=== PATIENT | female | born 1970 | race Caucasian/White ===

== ENCOUNTER 2020-12-19 13:38 | Inpatient (IN) | payer SELFPAY ==
[2020-12-19] MEDS ORDERED: ONDANSETRON 4 MG/2 ML VIAL ONE (14:34)
[2020-12-19] MEDS ORDERED: KETOROLAC 30 MG/ML INJ ONE (14:35)
[2020-12-19] MEDS ORDERED: NA CHLORIDE 0.9% 1,000 ML ONE (14:35)
[2020-12-19 14:49] LABS: Absolute Lymphocytes (CBC) 2.1 K/uL (0.7-4.9); Basophils % 0.4 % (0-1.3); Hematocrit 39.6 % (36.0-45.0); Lymphocytes % 25.7 % (15.3-44.8); MPV 7.8 fL (7.6-11.3); RBC Red Blood Cell Count 4.29 M/uL (3.86-4.86)
--- NOTE | 2020-12-19 14:51 | RAD REPORT ---
EXAM DESCRIPTION: US - Abdomen Exam Limited - 12/19/2020 2:42 pm CLINICAL HISTORY: RUQ abdomen pain COMPARISON: No comparisons FINDINGS: The gallbladder demonstrates no gallstones. Minimal pericholecystic fluid is suspected. Th e common bile duct is normal measuring 4 mm. The liver demonstrates no findings of intrahepatic biliary dilatation. IMPRESSION: The gallbladder is distended with a small amount of pericholecystic fluid evident. No g allstones are evident. If pain persists, consider HIDA scan correlation.
[2020-12-19 14:53] LABS: ALT/SGPT 24 U/L (12-78); AST/SGOT 10 U/L (15-37); Albumin 3.8 g/dL (3.4-5.0); Alkaline Phosphatase 73 U/L (45-117); BUN Blood Urea Nitrogen 16 mg/dL (7-18); Bicarbonate 29 mmol/L (21-32); Bilirubin Direct < 0.1 mg/dL (0-0.2); Bilirubin Total 0.3 mg/dL (0.2-1.0); Glucose Level 112 mg/dL (74-106); Lipase 210 U/L (73-393); Potassium 3.7 mmol/L (3.5-5.1); Protein, Total 7.4 g/dL (6.4-8.2); Sodium Level 143 mmol/L (136-145)
--- NOTE | 2020-12-19 15:31 | ER ---
Nurse's Notes [facility] Name: Radha Grubbs Age: 50 yrs Sex: Female : 1970 Arrival Date: 12/19/2020 Time: 13:42 Bed 15 Private MD: Diagnosis: Cholecystitis, unspecified Presentation: 12/19 14:03 Chief complaint: Patient states: Epigastric pain after eating a taco for lunch. Feels ll1 bloated and full, some nausea. No fever or diarrhea. Coronavirus screen: Client denies travel out of the [place] in the last 14 days. At this time, the client does not indicate any symptoms associated with coronavirus-19. Ebola Screen: Patient denies travel to an Ebola-affected area in the 21 days before illness onset. Initial Sepsis Screen: Does the patient meet any 2 criteria? No. Patient's initial sepsis screen is negative. Does the patient have a suspected source of infection? Yes: Acute abdominal pain. Risk Assessment: Do you want to hurt yourself or someone else? Patient reports no desire to harm self or others. Onset of symptoms was December 19, 2020. 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 - Social history:: Smoking status: Patient reports the use of cigarette tobacco products, smokes one-half pack cigarettes per day. Screenin:04 Abuse screen: Denies threats or abuse. Nutritional screening: No deficits noted. ll1 Tuberculosis screening: No symptoms or risk factors identified. 15:25 Fall Risk IV access (20 points). Total Strange Fall Scale indicates No Risk (0-24 pts). jl7 Assessment: 14:00 General: Appears in no apparent distress. uncomfortable, Behavior is calm, cooperative, jl7 appropriate for age. Pain: Complains of pain in right upper quadrant and epigastric area Pain currently is 8 out of 10 on a pain scale. Neuro: Level of Consciousness is awake, alert, obeys commands, Oriented to person, place, time, situation. Cardiovascular: Patient's skin is warm and dry. Respiratory: Airway is patent Respiratory effort is even, unlabored, Respiratory pattern is regular, symmetrical. GI: Abdomen is non-distended, Reports upper abdominal pain, epigastric pain, nausea. Derm: Skin is pink, warm \T\ dry. 15:15 Reassessment: ERP at bedside discussing results and POC. jl7 15:25 Reassessment: ERP gave VO for 4 mg Morphine IVP. jl7 15:45 Reassessment: Hospitalist Dr. Mckenzie at bedside assessing pt. jl7 16:42 Reassessment: Dr. Roblero at bedside discussing POC. jl7 16:50 Reassessment: Dr. Roblero gave VO for PO challenge with clear liquid, Pt given jello jl7 for PO challenge. 18:00 Reassessment: Pt able to tolerate water and Jello. jl7 Vital Signs: 14:03 BP 142 / 87; Pulse 76; Resp 17; Temp 98.5; Pulse Ox 99% ; Weight 79.38 kg; Height 5 ft. ll1 7 in. (170.18 cm); Pain 8/10; 15:25 BP 126 / 76; Pulse 90; Resp 17; Pulse Ox 100% ; jl7 16:23 BP 123 / 79; Pulse 71; Resp 17; Pulse Ox 98% ; jl7 18:15 BP 110 / 75; Pulse 64; Resp 17; Pulse Ox 99% ; jl7 14:03 Body Mass Index 27.41 (79.38 kg, 170.18 cm) ll1 ED Course: 13:42 Patient arrived in ED. as 14:00 Washington Nagy PA is PHCP. cp 14:00 Gerson Horn MD is Attending Physician. cp 14:02 Eliz Goel RN is Primary Nurse. jl7 14:02 Arm band placed on Patient placed in an exam room, on a stretcher. ll1 14:04 Triage completed. ll1 14:04 Patient has correct armband on for positive identification. Placed in gown. Bed in low ll1 position. Call light in reach. 14:20 Initial lab(s) drawn, by me, sent to lab. Inserted saline lock: 20 gauge in right jl7 antecubital area, using aseptic technique. Blood collected. 14:41 US Abdomen Limited In Process Unspecified. EDMS 15:30 Mukesh Mckenzie MD is Hospitalizing Provider. cp 16:00 COVID swab sent to lab. jl7 17:49 Kameron Roblero MD is Referral Physician. cp 18:31 No provider procedures requiring assistance completed. IV discontinued, intact, jl7 bleeding controlled, No redness/swelling at site. Pressure dressing applied. Administered Medications: 14:18 Drug: Zofran (Ondansetron) 4 mg Route: IVP; Site: right antecubital; jl7 15:00 Follow up: Response: No adverse reaction; Nausea is decreased jl7 14:20 Drug: NS 0.9% 1000 ml Route: IV; Rate: 1 bolus; Site: right antecubital; jl 14:30 Follow up: IV Pause: 12/19/2020 14:30; IV Pause Reason: Patient to Ultrasound jl7 15:26 Follow up: IV Resume: 12/19/2020 15:00; IV Resume Reason: Patient returned from [facility] Ultrasound 16:00 Follow up: Response: No adverse reaction; IV Status: Completed infusion; IV Intake: jl7 1000ml 14:20 Drug: TORadol - Ketorolac 15 mg Route: IVP; Site: right antecubital; jl7 15:00 Follow up: Response: No adverse reaction; Pain is decreased jl7 15:50 Drug: Mefoxin 1 grams {Note: administered per pharmacy protocol.} Route: IVPB; Infused jl7 Over: 30 mins; Site: left hand; 15:53 Follow up: Response: No adverse reaction; IV Status: Completed infusion jl7 15:54 Drug: morphine 4 mg Route: IVP; Site: left hand; jl7 16:10 Follow up: Response: No adverse reaction; Pain is decreased jl7 15:55 Drug: metroNIDAZOLE 500 mg Volume: 100 ml; Route: IVPB; Infused Over: 30 mins; Site: 7 left hand; 16:25 Follow up: Response: No adverse reaction; IV Status: Completed infusion jl7 16:21 CANCELLED (wrong order): morphine 2 mg IVP once; (PAIN>8) RASS on ADMN: Combtv4, Very jl7 Agttd3, Agttd2, Rstlss1, AlertClm0, Drwsy-1, LtSdtn-2, ModSdtn-3, DpSdtn-4, UnArsble-5 x2 Intake: 16:00 IV: 1000ml; Total: 1000ml. jl7 Outcome: 15:30 Decision to Hospitalize by Provider. cp 17:50 Discharge ordered by MD. cp 18:31 Discharged to home ambulatory, with friend. jl7 18:31 Condition: stable 18:31 Discharge instructions given to patient, Instructed on discharge instructions, follow up and referral plans. medication usage, Demonstrated understanding of instructions, follow-up care, medications, Prescriptions given X 3. 18:31 Patient left the ED. jl7 Signatures: Dispatcher [employer] EDMS Marlen Jorgensen Corey, PA PA cp Leal, Jahala RN RN jl7 Mikhail Castillo RN RN ll1 Corrections: (The following items were deleted from the chart) 15:26 15:00 IV Resume: 12/19/2020 15:00; IV Resume Reason: Patient returned from ID [id number] jl7
--- NOTE | 2020-12-19 15:31 | EDPHYS ---
Physician Documentation [facility] Name: Radha Grubbs Age: 50 yrs Sex: Female : 1970 Arrival Date: 12/19/2020 Time: 13:42 Bed 15 Private MD: ED Physician Gerson Horn HPI: 12/19 14:10 This 50 yrs old Female presents to ER via Ambulatory with complaints of Upper cp Abdomen Pain. 14:10 The patient presents with abdominal pain in the epigastric area, in the right upper cp quadrant. Onset: The symptoms/episode began/occurred today, at 10:00. The symptoms do not radiate. Associated signs and symptoms: Pertinent positives: chest pain, Pertinent negatives: constipation, diarrhea, dysuria, fever, shortness of breath, vomiting. The symptoms are described as constant. 14:10 Patient reports pain started after eating a taco this morning. 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 - Social history:: Smoking status: Patient reports the use of cigarette tobacco products, smokes one-half pack cigarettes per day. ROS: 14:15 Abdomen/GI: Positive for abdominal pain, of the epigastric area and right upper cp quadrant, Negative for vomiting, diarrhea, constipation, hematemesis. 14:15 Eyes: Negative for injury, pain, redness, and discharge. cp 14:15 Constitutional: Negative for body aches, chills, fever, poor PO intake. 14:15 Neck: Negative for pain with movement, pain at rest, stiffness. 14:15 Cardiovascular: Positive for chest pain, of the lower chest, Negative for palpitations. 14:15 Respiratory: Negative for cough, shortness of breath, wheezing. 14:15 Back: Negative for radiated pain. 14:15 : Negative for urinary symptoms. 14:15 Neuro: Negative for altered mental status, headache, numbness, syncope, weakness. 14:15 All other systems are negative. Exam: 14:20 Constitutional: The patient appears in no acute distress, alert, awake, cp non-diaphoretic, non-toxic, well developed, well nourished. 14:20 Head/Face: Normocephalic, atraumatic. cp 14:20 Eyes: Periorbital structures: appear normal, Conjunctiva: normal, no exudate, no injection, Sclera: no appreciated abnormality, Lids and lashes: appear normal, bilaterally. 14:20 ENT: External ear(s): are unremarkable, Nose: is normal, Posterior pharynx: Airway: no evidence of obstruction, patent. 14:20 Chest/axilla: Inspection: normal, Palpation: is normal, no crepitus, no tenderness. 14:20 Cardiovascular: Rate: normal, Rhythm: regular. 14:20 Respiratory: the patient does not display signs of respiratory distress, Respirations: normal, no use of accessory muscles, no retractions, labored breathing, is not present, Breath sounds: are clear throughout, no decreased breath sounds, no stridor, no wheezing. 14:20 Abdomen/GI: Inspection: abdomen appears normal, Bowel sounds: active, all quadrants, Palpation: soft, in all quadrants, moderate abdominal tenderness, in the epigastric area and right upper quadrant, rebound tenderness, is not appreciated, involuntary guarding, is elicited in the epigastric area and right upper quadrant. 14:20 Back: pain, is absent, ROM is normal. Vital Signs: 14:03 BP 142 / 87; Pulse 76; Resp 17; Temp 98.5; Pulse Ox 99% ; Weight 79.38 kg; Height 5 ft. ll1 7 in. (170.18 cm); Pain 8/10; 15:25 BP 126 / 76; Pulse 90; Resp 17; Pulse Ox 100% ; jl7 16:23 BP 123 / 79; Pulse 71; Resp 17; Pulse Ox 98% ; jl7 18:15 BP 110 / 75; Pulse 64; Resp 17; Pulse Ox 99% ; jl7 14:03 Body Mass Index 27.41 (79.38 kg, 170.18 cm) ll1 MDM: 14:00 Patient medically screened. cp 15:15 Data reviewed: vital signs, nurses notes, lab test result(s), radiologic studies, cp ultrasound. 15:15 Counseling: I had a detailed discussion with the patient and/or guardian regarding: the cp historical points, exam findings, and any diagnostic results supporting the discharge/admit diagnosis, lab results, radiology results. 17:46 Physician consultation: Kameron Roblero MD was called at 15:30, regarding patient's cp condition, in the emergency department to see patient at 16:00, recommends po challenge and if patient's pain and nausea controlled, patient can be discharged to home and f/u in clinic for outpatient cholecystectomy . 12/19 14:09 Order name: Basic Metabolic Panel; Complete Time: 15:10 cp 12/19 15:11 Interpretation: Normal except: GLUC 112. cp 12/19 14:09 Order name: CBC with Diff; Complete Time: 14:53 cp 12/19 14:09 Order name: Hepatic Function; Complete Time: 15:10 cp 12/19 14:09 Order name: Lipase; Complete Time: 15:10 cp 12/19 17:08 Order name: SARS-COV-2 RT PCR EDAZ 12/19 14:09 Order name: US Abdomen Limited; Complete Time: 14:53 cp 12/19 14:09 Order name: IV Saline Lock; Complete Time: 14:27 cp 12/19 14:09 Order name: Labs collected and sent; Complete Time: 14:27 cp 12/19 14:09 Order name: Urine Dipstick-Ancillary (obtain specimen); Complete Time: 14:27 cp 12/19 14:09 Order name: Urine Test (obtain specimen); Complete Time: 14:27 cp 12/19 14:09 Order name: NPO; Complete Time: 14:28 cp 12/19 15:31 Order name: CONS Physician Consult [facility] 12/19 16:51 Order name: PO challenge; Complete Time: 17:27 cp Administered Medications: 14:18 Drug: Zofran (Ondansetron) 4 mg Route: IVP; Site: right antecubital; [facility] 15:00 Follow up: Response: No adverse reaction; Nausea is decreased [facility] 14:20 Drug: NS 0.9% 1000 ml Route: IV; Rate: 1 bolus; Site: right antecubital; [facility] 14:30 Follow up: IV Pause: 12/19/2020 14:30; IV Pause Reason: Patient to Ultrasound [facility] 15:26 Follow up: IV Resume: 12/19/2020 15:00; IV Resume Reason: Patient returned from [facility] Ultrasound 16:00 Follow up: Response: No adverse reaction; IV Status: Completed infusion; IV Intake: jl7 1000ml 14:20 Drug: TORadol - Ketorolac 15 mg Route: IVP; Site: right antecubital; jl7 15:00 Follow up: Response: No adverse reaction; Pain is decreased jl7 15:50 Drug: Mefoxin 1 grams {Note: administered per pharmacy protocol.} Route: IVPB; Infused jl7 Over: 30 mins; Site: left hand; 15:53 Follow up: Response: No adverse reaction; IV Status: Completed infusion jl7 15:54 Drug: morphine 4 mg Route: IVP; Site: left hand; jl7 16:10 Follow up: Response: No adverse reaction; Pain is decreased jl7 15:55 Drug: metroNIDAZOLE 500 mg Volume: 100 ml; Route: IVPB; Infused Over: 30 mins; Site: jl7 left hand; 16:25 Follow up: Response: No adverse reaction; IV Status: Completed infusion jl7 16:21 CANCELLED (wrong order): morphine 2 mg IVP once; (PAIN>8) RASS on ADMN: Combtv4, Very jl7 Agttd3, Agttd2, Rstlss1, AlertClm0, Drwsy-1, LtSdtn-2, ModSdtn-3, DpSdtn-4, UnArsble-5 x2 Disposition: 21:55 Co-signature as Attending Physician, Gerson Horn MD I agree with the assessment and kdr plan of care. Disposition: 12/19/20 17:50 Discharged to Home. Impression: Cholecystitis, unspecified. - Condition is Stable. - Discharge Instructions: Cholecystitis. - Prescriptions for Cipro 500 mg Oral Tablet - take 1 tablet by ORAL route every 12 hours for 7 days; 14 tablet. Metronidazole 500 mg Oral Tablet - take 1 tablet by ORAL route every 8 hours for 7 days; 21 tablet. Zofran 4 mg Oral Tablet - take 1 tablet by ORAL route every 12 hours As needed; 20 tablet. - Medication Reconciliation Form, Thank You Letter, Antibiotic Education, Prescription Opioid Use, Work release form form. - Follow up: Kameron Roblero MD; When: 2 - 3 days; Reason: Recheck today's complaints. - Problem is new. - Symptoms have improved. Signatures: Dispatcher [employer] EDAZ Gerson Horn MD MD kdr Washington Nagy PA PA cp Eliz Goel, RN RN jl7 Mikhail Castillo RN RN ll1 Corrections: (The following items were deleted from the chart) 16:09 15:30 CORONAVIRUS+ ordered. EDMS EDMS 16:21 15:30 morphine 2 mg IVP once; (PAIN>8) RASS on ADMN: Combtv4, Very Agttd3, Agttd2, jl7 Rstlss1, AlertClm0, Drwsy-1, LtSdtn-2, ModSdtn-3, DpSdtn-4, UnArsble-5 x2 ordered. cp 17:49 15:30 Hospitalization Ordered by Mukesh Mckenzie MD for Observation. Preliminary cp diagnosis is Cholecystitis. Bed requested for Telemetry/MedSurg (observation). Status is Observation. Condition is Stable. Problem is new. Symptoms have improved. cp 18:31 17:50 12/19/2020 17:50 Discharged to Home. Impression: Cholecystitis, unspecified. jl7 Condition is Stable. Forms are Medication Reconciliation Form, Thank You Letter, Antibiotic Education, Prescription Opioid Use. Follow up: Kameron Roblero; When: 2 - 3 days; Reason: Recheck today's complaints. Problem is new. Symptoms have improved. cp
[2020-12-19] MEDS ORDERED: METRONIDAZOLE 500mg IVPB 500 MG/100 ML BAG IV ONE (15:47)
[2020-12-19] MEDS ORDERED: CEFOXITIN/SWI 1gm 1 GM/10 ML SYR ONE (15:47)
[2020-12-19] MEDS ORDERED: MORPHINE 4 MG/ML SYR ONE (15:48)
--- NOTE | 2020-12-19 16:02 | P.HP ---
Certification for Inpatient Patient admitted to: Inpatient With expected LOS: >2 Midnights Practitioner: I am a practitioner with admitting privileges, knowledge of patient current condition, hospital course, and medical plan of care. Services: Services provided to patient in accordance with Admission requirements found in Title 42 Section 412.3 of the Code of Federal Regulations Patient History Date of Service: 12/19/20 Reason for admission: acute cholecystitis History of Present Illness: 50yo F, no significant PMH, presents to ED due to severe RUQ and epigastric pain. Pain began at 11am today within 15 min of eating lunch. Associated with nausea, no emesis. +hot flashes, diarrhea, no recent illness, no chest pain, no dysuria. First occurrence of this type of pain. Nothing seemed to further exacerbate or relieve this pain until received pain medication in the ED. Workup in the ED: unremarkable bloodwork, no fever, RUQ U/S concerning for acute cholecystitis. General surgery was contacted and recommended admission for cholecystectomy. 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 - Family History Family History: Reviewed- Non-Contributory - Social History Smoking Status: Current every day smoker (1-4 cig/day) Alcohol use: Yes Place of Residence: Home Review of Systems 10-point ROS is otherwise unremarkable Physical Examination - Studies Laboratory Data (last 24 hrs) 12/19/20 14:21: WBC 8.10, Hgb 13.5, Hct 39.6, Plt Count 333 12/19/20 14:21: Sodium 143, Potassium 3.7, BUN 16, Creatinine 0.67, Glucose 112 H, Total Bilirubin 0.3, AST 10 L, ALT 24, Alkaline Phosphatase 73, Lipase 210 Assessment and Plan - Advance Directives Does patient have a Living Will: No Does patient have a Durable POA for Healthcare: No Physician Review Additional Text: Physical Exam: Gen: NAD HEENT: normal conjunctiva, sclera anicteric CV: RRR, no m/r/g Pulm: CTAB, no w/r/r Abd: soft, moderate TTP in RUQ and epigastrium, no rebound Ext: no edema, no rash Neuro: AAOx3 Problem List RUQ pain with nausea Acute cholecystitis -RUQ U/S consistent with acute cholecystitis -reports penicillin allergy - cover with levaquin / flagyl -NPO, IVF, SCDs -General surgery consulted -morphine for pain control, zofran for nausea -serial abdominal exams VTE: SCDs Code: full Dispo: anticipate dc home in 24-48hrs pending surgical findings Time Spent Managing Pts Care (In Minutes): 60
[2020-12-19 19:29] VITALS: TEMP 98.5
[2020-12-19 19:32] VITALS: BP 110/75; O2SAT 99
--- NOTE | 2020-12-19 19:34 | CON ---
Date of Consultation: 12/19/2020 Brief Hpi: The patient is a 50-year-old female who presents to the hospital with sudden onset of abd ominal pain beginning at approximately 11 a.m. this morning after eating a breakfast and taco. She s tates the pain was sharp, stabbing, and in the right upper quadrant. Severe pain was noted, associat ed with nausea, vomiting. 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 She presented here to the hospital and was treated, worked up, and during her ad mission was given antibiotics as well as IV fluids and pain medication. She is now 100% pain-free. She states that it is apprising how her pain has completely resolved. She has no more tenderness. N o nausea, no vomiting, no other symptoms. She feels back to 100% at this point. Past Medical History: Negative. Past Surgical History: She has had an ectopic , laparoscopy. Allergies: PENICILLIN. Medications: None. Social History: She denies smoking, alcohol, or recreational drug use. 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 Review of Systems: Ten-point review of systems other than HPI, denies. Physical Examination: Vital Signs: At the time of my examination, she is awake, alert, oriented. Psychiatric: Appropriate. Conversive. HEENT: Normocephalic. Sclerae anicteric. Mucous membranes are moist. Oropharynx clear. Neck: Supple. No JVD. Chest: Normal expansion and excursion. Cardiovascular: Regular rate and rhythm. Pulmonary: Clear to auscultation bilaterally. Abdomen: Soft, nontender, nondistended. No rebound. No guarding. No focal peritonitis. Negative Stephen sign. Negative rebound. She has a benign abdominal exam. She has a well-healed periumbilica l surgical scar. Extremities: No clubbing, cyanosis, edema. Skin: warm and dry. Laboratory Data: Reveals a white blood count of 8.1, hemoglobin is 13.5, hematocrit 39.6, platelet c ount is 333, neutrophils normal at 67%. Her sodium 143, potassium 3.7, chloride 106, carbon dioxide 29, BUN 16, creatinine 0.6, glucose is 112, total bilirubin 0.3, direct component 0.1, AST 10, ALT 24 , alkaline phosphatase is 73, lipase is 210. She had imaging performed, which included abdominal ult rasound, which was officially read as gallbladder distended with small amount of pericholecystic flui d evident. No gallstones are evident. If pain persists, consider HIDA scan. There is minimal peric holecystic fluid suspected. The common bile duct is normal measuring 4 mm. Assessment And Plan: This is a 50-year-old female who comes in with an episode of biliary colic, whi ch has now seemed to be resolved. 1.IV fluid hydration. 2.Antibiotic coverage. 3.I have explained risks, benefits and alternatives of laparoscopic possible open cholecystectomy in cluding but not limited to bleeding, infection, damage to surrounding tissues, injury to bile ducts, intestine, need for further operation and procedures. The patient would like to proceed with nonoper ative management. At this point, she is currently pain free and as such, we will start on clear liqu id diet, and if she is able to tolerate diet, we will send her home with instructions to follow up fo r scheduling an outpatient cholecystectomy. The patient agrees with the above stated plan. SATYA/ADONIS Voice ID: [id number] Report ID: [id number]
== END 2020-12-20 08:00 | disposition home or self-care (01) | DRG 446 ==
LOC: ER 13:38 → ERHOLD 15:30
PROVIDERS: ADMIT Hospitalist; ATTEND Hospitalist
DX: K81.0 Acute cholecystitis (principal); F17.210 Nicotine dependence, cigarettes, uncomplicated; Z88.5 Allergy status to narcotic agent; Z20.822 Contact with and (suspected) exposure to COVID-19
CPT/HCPCS: 36415; 76705; 80048; 80076; 83690; 85025; 99284; J2405; J7030; U0003

== ENCOUNTER 2021-01-17 07:22 | Day surgery (SDC) | payer SELFPAY ==
[2021-01-17] MEDS ORDERED: Ringers Lactate 1,000 ML IV ONE (08:47)
[2021-01-17] MEDS ORDERED: CEFOXITIN/SWI 1gm 2 GM/20 ML SYR ONE (09:00)
[2021-01-17] MEDS ORDERED: ACETAMINOPHEN 500 MG TAB ONE (09:20)
[2021-01-17] MEDS ORDERED: CELECOXIB 100 MG CAPSULE ONE (09:20)
[2021-01-17] MEDS ORDERED: BUPIVACAINE 0.25% PF 10 ML VIAL ONE (09:47)
[2021-01-17] MEDS ORDERED: ROCURONIUM 50 MG/5 ML VIAL IV ONE (10:12)
[2021-01-17] MEDS ORDERED: FENTANYL CITR 100 MCG/2 ML ONE ×2 (10:12→10:55)
[2021-01-17] MEDS ORDERED: LIDOCAINE 1% MPF 5 ML VIAL ONE (10:12)
[2021-01-17] MEDS ORDERED: MIDAZOLAM HCL 2 MG/2 ML INJ ONE (10:12)
[2021-01-17] MEDS ORDERED: propofoL 200 MG/20 ML VIAL IV ONE (10:12)
[2021-01-17] MEDS ORDERED: dexAMETHasone 10 MG/ML VIAL ONE (10:58)
[2021-01-17] MEDS ORDERED: ONDANSETRON 4 MG/2 ML VIAL ONE ×3 (10:59→13:17)
[2021-01-17] MEDS ORDERED: KETOROLAC 30 MG/ML INJ ONE (10:59)
[2021-01-17] MEDS ORDERED: GLYCOPYRROLATE 0.2 MG/ML SYR ONE ×2 (11:00→11:10)
[2021-01-17] MEDS ORDERED: NEOSTIGMINE 1 MG/ML -5 ML ONE (11:00)
--- NOTE | 2021-01-17 11:00 | P.OP ---
Preoperative diagnosis: Chronic Cholecystitis with Cholelithiasis Postoperative diagnosis: Chronic Cholecystitis with Cholelithiasis Primary procedure: Laparoscopic Cholecystectomy Anesthesia: GETA + Local Estimated blood loss: <5cc Specimen: gallbladder Findings: Chronic Cholecystitis with Cholelithiasis Complications: None Transferred to: Recovery Room Condition: Good
[2021-01-17] MEDS: HYDROMORPHONE HCL 1 MG/ML INJ ONE ×2 (11:27→11:32)
[2021-01-17 13:16] VITALS: O2SAT 97
[2021-01-17] MEDS ORDERED: PROMETHAZINE INJ 25 MG/ML AMP ONE (13:48)
[2021-01-17 14:36] VITALS: BP 111/71; TEMP 97.5
[2021-01-17] MEDS ORDERED: HYDROCODONE/APAP 7.5/325 MG TAB ONE (14:47)
--- NOTE | 2021-01-17 17:16 | OP ---
Date of Procedure: 01/17/2021 Surgeon: Kameron Roblero MD, Preoperative Diagnosis: Chronic cholecystitis with cholelithiasis. Postoperative Diagnosis: Chronic cholecystitis with cholelithiasis. Procedure Performed: Laparoscopic cholecystectomy. Anesthesia: General endotracheal plus local with 0.25% Marcaine without epinephrine. Estimated Blood Loss: Less than 5 mL. Specimen: Gallbladder. Findings: Chronic cholecystitis, cholelithiasis. Complications: None. Disposition: The patient was transferred to recovery room in good condition. Procedure In Detail: After informed consent was obtained, the patient was brought to the operating r oom, prepped and draped in the usual sterile fashion. After adequate anesthesia achieved, a supraumb ilical area was anesthetized with 0.25% Marcaine, sharply incised. A 5 mm 0-degree optical trocar wa s introduced in the abdomen without evidence of complication. Insufflation was obtained to 15 mmHg a t this time. No injury to vital structures upon entry to the abdomen. Additional trocars were chose n, 1 in the epigastrium. This was similarly anesthetized and sharply incised. A 5 mm trocar was int roduced in the abdomen without evidence of complication. The umbilical trocar was then up-sized to a 12 mm under direct visualization without evidence of complication. Additional trocar was placed in the right upper quadrant. This was similarly anesthetized and sharply incised. A 5 mm trocar was in troduced in the abdomen without evidence of complication. The patient was positioned head up right-s fiona up position. Ratcheted grasper was used to grasp the patient's gallbladder and placed toward the patient's right shoulder. Dissection continued down to the Miri pouch of the gallbladder to fin d stones and evidence of chronic cholecystitis. I skeletonized the structures after taking the perit oneum down and careful meticulous dissection allowed for skeletonization of the cystic duct and cysti c artery, which were both skeletonized and a critical view of safety was obtained at this point. I t hen placed double titanium clips on the proximal side and singly on the distal side of both the cysti c duct and cystic artery. There was no bleeding or leakage of bile throughout the procedure. The st ructures were then ligated using Endo Tari. The gallbladder was removed from the hepatic fossa wit hout evidence of complication using electrocautery. Minimal hemostatic was required on the hepatic f steven to control minimal bleeding. This was easily controlled at that point. The gallbladder was deborah iva in EndoCatch bag, removed through the umbilical trocar, and sent off for pathologic examination. The abdomen was then re-insufflated at this point. The surgical bed was inspected and no additional maneuver was required. The area was copiously irrigated multiple times and suctioned out until comp letely clear. The patient was positioned back into neutral position. The remainder of the abdomen w as suctioned out and the umbilical trocar was closed using a Holger-Kaitlin suture passer with 0 Dustin ryl in an interrupted fashion with good apposition of the tissues. The abdomen was completely desuff lated under direct visualization without evidence of complication. Remaining trocars were removed. All skin incisions were copiously irrigated and closed with 4-0 Monocryl in a running fashion. Oberon almanza placed over top. The patient tolerated the procedure well without evidence of complication and transferred to PACU in good condition. All counts were correct at the end of the case. SATYA/ADONIS Voice ID: [id number] Report ID: [id number]
== END 2021-01-17 15:00 | disposition home or self-care (01) ==
LOC: OR 07:22
PROVIDERS: ATTEND Surgery
PROC: 0FT44ZZ Resection of Gallbladder, Percutaneous Endoscopic Approach (ICD-10-PCS; principal; 2021-01-17 08:45)
DX: K80.10 Calculus of gallbladder with chronic cholecystitis without obstruction (principal); Z20.822 Contact with and (suspected) exposure to COVID-19
CPT/HCPCS: 88304; 47562; U0002; J2704; J2550; J2250; J3010 ×2; J1100; J1170; J2710; J7120; J2405 ×3